=== PATIENT | female | born 1935 | race Caucasian/White ===

== ENCOUNTER 2018-04-04 07:19 | Emergency (ER) | payer MEDICARE, BC ==
[2018-04-04 07:42] VITALS: BP 199/84
[2018-04-04] MEDS: HYDROmorphone 0.5 MG/0.5 ML Syringe SUBCUT ONE (07:47)
--- NOTE | 2018-04-04 07:48 | EDM.PDOC ---
<Maribell Atkinson - Last Filed: 04/04/18 07:43> ED HPI GENERAL MEDICAL PROBLEM - General Chief Complaint: Upper Extremity Injury/Pain Stated Complaint: RT SHOULDER PAIN Time Seen by Provider: 04/04/18 07:30 Source of Information: Reports: Patient History Limitations: Reports: No Limitations - History of Present Illness INITIAL COMMENTS - FREE TEXT/NARRATIVE: C/o pain severe pain to right shoulder. Has seeing physical therapy. Pain worse through night. New bruising to top of shoulder. Notes similar when INR elevated. Has tried tylenol and tramadol without any improvement in pain. - Related Data Allergies Allergy/AdvReac Type Severity Reaction Status Date / Time levofloxacin [From Levaquin] Allergy Muscle Verified 03/20/15 08:40 Aches Home Meds: Home Meds Atenolol [Tenormin] 50 mg PO BID 03/01/14 [History] Brimonidine Tartrate [Alphagan P] 1 drop EYEBOTH TID 03/01/14 [History] Calcium Carbonate/Vitamin D3 [Caltrate-600 with Vit D Tab] 1 each PO DAILY 03/01 [History] Dicyclomine [Bentyl] 20 mg PO QID PRN 03/01/14 [History] Digoxin [Digox] 125 mcg PO DAILY 03/01/14 [History] Losartan/Hydrochlorothiazide [Losartan-HCTZ 100-25 MG] 0.5 tab PO BID 03/01/14 [ History] Multivit-Min/FA/Lycopene/Lut [Centrum Silver] 1 each PO DAILY 03/01/14 [History] Omeprazole 20 mg PO DAILY 03/01/14 [History] Warfarin Sodium 1 tab PO DAILY 03/01/14 [History] Zolpidem [Ambien] 5 gram PO BEDTIME PRN 03/01/14 [History] LORazepam 1 mg PO ASDIRECTED 03/22/15 [History] Cimetidine [Tagamet] 200 mg PO DAILY PRN 03/23/15 [History] Ergocalciferol (Vitamin D2) [Vitamin D2] 50,000 unit PO .BIWEEKLY 03/23/15 [ History] Latanoprost 1 drop EYEBOTH DAILY 03/23/15 [History] Review of Systems - Review of Systems Review Of Systems: ROS reveals no pertinent complaints other than HPI. ED EXAM, GENERAL - Physical Exam Exam: See Below Exam Limited By: No Limitations General Appearance: Moderate Distress (tearful, pacing frequent attempts to reposition arm) Eye Exam: Bilateral Eye: EOMI Ears: Normal External Exam, Hearing Loss Nose: Normal Inspection Throat/Mouth: Normal Inspection Head: Atraumatic, Normocephalic Neck: Full Range of Motion Respiratory/Chest: Lungs Clear Cardiovascular: Regular Rate, Rhythm Extremities: Limited Range of Motion (right shoulder increased pain with minimal movment). No: Normal Range of Motion Neurological: Alert, Oriented, Normal Cognition Psychiatric: Tearful Skin Exam: Warm, Dry, Intact, Ecchymosis (older yellow bruising with 2x4cm purple bruised area near bra strap outline.) Course - Vital Signs Last Recorded V/S: Last Vital Signs Temp 36.4 C 04/04/18 07:23 Pulse 88 04/04/18 07:23 Resp 18 04/04/18 07:23 BP 199/84 H 04/04/18 07:23 Pulse Ox 93 L 04/04/18 07:23 - Orders/Labs/Meds Labs: Laboratory Tests 04/04/18 Range/Units 07:40 PT 37.9 H (9.0-12.0) SEC INR 3.9 H (0.9-1.2) Meds: Medications Discontinued Medications Generic Name Dose Route Start Last Admin Trade Name Freq PRN Reason Stop Dose Admin Hydromorphone HCl 1 mg 04/04/18 07:41 04/04/18 07:47 Dilaudid SUBCUT 04/04/18 07:42 1 mg ONETIME ONE Administration Departure - Departure Disposition: Home, Self-Care 01 Clinical Impression: Supratherapeutic international normalized ratio (INR) Osteoarthritis of right shoulder Qualifiers: Osteoarthritis type: unspecified Qualified Code(s): M19.011 - Primary osteoarthritis, right shoulder Contusion of shoulder, right Qualifiers: Encounter type: initial encounter Qualified Code(s): S40.011A - Contusion of right shoulder, initial encounter - Discharge Information Instructions: Shoulder Pain, Warfarin Coagulopathy Forms: ED Department Discharge Additional Instructions: Do not take Warfarin (Coumadin) today, and take 5mg tomorrow. Call your doctor April 06 to arrange a repeat blood test and follow up appointment. Rx: [place] (Hydrocodone APAP) 5mg/325mg *Do not drive while under the influence of this medication. <Aldo Gomes - Last Filed: 04/04/18 09:19> ED HPI GENERAL MEDICAL PROBLEM - History of Present Illness INITIAL COMMENTS - FREE TEXT/NARRATIVE: Assumed care of pt at shift change with no changes to CC/HPI as documented by Maribell FULLER for this encounter. 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 Course - Radiology Interpretation Free Text/Narrative:: xray Rt shoulder: no acute fracture, see Rad. report. Departure - Departure Time of Disposition: 08:57 Condition: Fair
== END 2018-04-04 09:35 | disposition home or self-care (01) ==
LOC: DL.ED 07:19
DX: S40.011A Contusion of right shoulder, initial encounter (principal); M19.011 Primary osteoarthritis, right shoulder; R79.1 Abnormal coagulation profile; Z88.1 Allergy status to other antibiotic agents; Z79.899 Other long term (current) drug therapy; Z79.01 Long term (current) use of anticoagulants; X58.XXXA Exposure to other specified factors, initial encounter
CPT/HCPCS: 36415; 73030-RT; 85610; 96372; 99283; 99284; J1170

== ENCOUNTER 2018-04-12 07:43 | Emergency (ER) | payer MEDICARE, BC ==
[2018-04-12] MEDS ORDERED: Sodium Chloride 0.9% 10 ML Syringe FLUSH PRN (07:49)
--- NOTE | 2018-04-12 07:49 | EDM.PDOC ---
"ED HPI GENERAL MEDICAL PROBLEM - General Chief Complaint: Upper Extremity Injury/Pain Stated Complaint: BY AMBULANCE Time Seen by Provider: 04/12/18 07:49 Source of Information: Reports: Patient, EMS, Old Records, RN, RN Notes Reviewed History Limitations: Reports: No Limitations - History of Present Illness INITIAL COMMENTS - FREE TEXT/NARRATIVE: Arrives from home by ambulance with c/o severe right shoulder pain with recurrent spontaneous bruising in the Rt shoulder region without injury. Pt is on coumadin with an INR of 3.9 on 04/04/18 and repeat INR of 3.0 today. Denies fall, or any injury. 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(s) Right Shoulder Pain Score (Numeric/FACES): 10 - Related Data Allergies Allergy/AdvReac Type Severity Reaction Status Date / Time levofloxacin [From Levaquin] Allergy Muscle Verified 03/20/15 08:40 Aches Home Meds: Home Meds Atenolol [Tenormin] 50 mg PO BID 03/01/14 [History] Brimonidine Tartrate [Alphagan P] 1 drop EYEBOTH TID 03/01/14 [History] Calcium Carbonate/Vitamin D3 [Caltrate-600 with Vit D Tab] 1 each PO DAILY 03/01 [History] Dicyclomine [Bentyl] 20 mg PO QID PRN 03/01/14 [History] Digoxin [Digox] 125 mcg PO DAILY 03/01/14 [History] Losartan/Hydrochlorothiazide [Losartan-HCTZ 100-25 MG] 0.5 tab PO BID 03/01/14 [ History] Multivit-Min/FA/Lycopene/Lut [Centrum Silver] 1 each PO DAILY 03/01/14 [History] Omeprazole 20 mg PO DAILY 03/01/14 [History] Warfarin Sodium 1 tab PO ASDIRECTED 03/01/14 [History] Zolpidem [Ambien] 5 gram PO BEDTIME PRN 03/01/14 [History] LORazepam 1 mg PO ASDIRECTED 03/22/15 [History] Cimetidine [Tagamet] 200 mg PO DAILY PRN 03/23/15 [History] Ergocalciferol (Vitamin D2) [Vitamin D2] 50,000 unit PO .BIWEEKLY 03/23/15 [ History] Latanoprost 1 drop EYEBOTH DAILY 03/23/15 [History] Hydrocodone/Acetaminophen [Hydrocodon-Acetaminophen 5-325] 1 tab PO ASDIRECTED PRN 04/12/18 [History] Past Medical History HEENT History: Reports: Glaucoma, Hard of Hearing, Other (See Below) Other HEENT History: wears glasses and uses hearing aides. 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: Reports: Musculoskeletal History: Reports: Arthritis Neurological History: Reports: None Psychiatric History: Reports: Depression Endocrine/Metabolic History: Reports: None Hematologic History: Reports: None Immunologic History: Reports: None Oncologic (Cancer) History: Reports: None Dermatologic History: Reports: None - Past Surgical History Female Surgical History: Reports: Hysterectomy Musculoskeletal Surgical History: Reports: None Social & Family History - Family History Family Medical History: Noncontributory - Living Situation & Occupation Living situation: Reports: , with Spouse Occupation: Retired ED ROS GENERAL - Review of Systems Review Of Systems: ROS reveals no pertinent complaints other than HPI. ED EXAM, GENERAL - Physical Exam Exam: See Below Exam Limited By: No Limitations General Appearance: Alert, Anxious, Moderate Distress (due to pain) Eye Exam: Bilateral Eye: Normal Inspection Nose: Normal Inspection, Normal Mucosa, No Blood Throat/Mouth: Normal Inspection Head: Atraumatic, Normocephalic Neck: Normal Inspection, Non-Tender, Full Range of Motion Respiratory/Chest: No Respiratory Distress, Lungs Clear, Normal Breath Sounds, No Accessory Muscle Use, Chest Non-Tender Cardiovascular: Irregularly Irregular GI/Abdominal: Normal Bowel Sounds, Soft, Non-Tender, No Distention. No: Guarding, Rigid, Rebound (Female) Exam: Deferred Rectal (Female) Exam: Deferred Back Exam: Normal Inspection. No: CVA Tenderness (L), CVA Tenderness (R) Extremities: Normal Capillary Refill, Arm Pain (Rt), Limited Range of Motion ( Rt shoulder), Other (Rt shoulder with resolving ecchymotic bruise at superior shoulder, newer subacute large bruises to anterior shoulder, upper anterior and medial Rt arm, skin is intact). No: Joint Swelling, Increased Warmth, Redness Neurological: Alert, Oriented, No Motor/Sensory Deficits Psychiatric: Anxious Skin Exam: Warm, Dry Course - Vital Signs Last Recorded V/S: Last Vital Signs Temp 36.8 C 04/12/18 10:07 Pulse 93 04/12/18 10:07 Resp 18 04/12/18 10:07 BP 189/81 H 04/12/18 10:07 Pulse Ox 99 04/12/18 07:46 - Orders/Labs/Meds Orders: Active Orders 24 hr Category Date Time Status Peripheral IV Care [RC] . DIRECTED Care 04/12/18 07:50 Active UA W/MICROSCOPIC [URIN] Stat Lab 04/12/18 10:15 Ordered HYDROmorphone [Dilaudid] Med 04/12/18 10:42 Once 0.5 mg IVPUSH ONETIME ONE Sodium Chloride 0.9% [Saline Flush] Med 04/12/18 07:49 Active 10 ml FLUSH ASDIRECTED PRN Peripheral IV Insertion Adult [OM.PC] Stat Oth 04/12/18 07:50 Ordered Medication Orders Hydromorphone HCl (Dilaudid) 0.5 mg IVPUSH ONETIME ONE Stop: 04/12/18 10:43 Sodium Chloride (Saline Flush) 10 ml FLUSH ASDIRECTED PRN PRN Reason: Keep Vein Open Last Admin: 04/12/18 08:00 Dose: 10 ml Labs: Laboratory Tests 04/12/18 04/12/18 04/12/18 Range/Units 07:58 07:58 07:58 WBC 10.6 H (5.0-10.0) 10^3/uL RBC 4.38 (4.2-5.4) 10^6/uL Hgb 13.8 (12.0-16.0) g/dL Hct 40.5 (37.0-47.0) % MCV 92.5 (80-100) fL MCH 31.5 (27.0-34.0) pg MCHC 34.1 (33.0-35.0) g/dL Plt Count 237 (150-450) 10^3/uL Neut % (Auto) 74.7 (42.2-75.2) % Lymph % (Auto) 16.3 L (20.5-50.1) % Gove % (Auto) 7.6 (2-8) % Eos % (Auto) 0.8 L (1.0-3.0) % Baso % (Auto) 0.6 (0.0-1.0) % PT 29.3 H (9.0-12.0) SEC INR 3.0 H (0.9-1.2) APTT 36.4 H (22.0-34.0) SEC Sodium 135 (135-145) mmol/L Potassium 3.2 L (3.6-5.0) mmol/L Chloride 96 L (101-111) mmol/L Carbon Dioxide 23.0 (21.0-31.0) mmol/L Anion Gap 19.2 BUN 20 H (7-18) mg/dL Creatinine 0.8 (0.6-1.3) mg/dL Est Cr Clr Drug Dosing 49.63 mL/min Estimated GFR (MDRD) > 60 BUN/Creatinine Ratio 25.00 Glucose 136 H (74-105) mg/dL Uric Acid (2.6-7.2) mg/dL Calcium 10.4 H (8.4-10.2) mg/dl Total Bilirubin 2.8 H (0.2-1.0) mg/dL AST 49 H (10-42) IU/L ALT 26 (10-60) IU/L Alkaline Phosphatase 222 H (42-121) IU/L Lactate Dehydrogenase (91-180) IU/L C-Reactive Protein (0.0-1.3) mg/dL Total Protein 8.0 (6.7-8.2) g/dl Albumin 4.8 (3.2-5.5) g/dl Globulin 3.2 Albumin/Globulin Ratio 1.50 Urine Color (YELLOW) Urine Appearance (CLEAR) Urine pH (5.0-9.0) Ur Specific [place] (1.005-1.030) Urine Protein (NEGATIVE) Urine Glucose (UA) (NEGATIVE) Urine Ketones (NEGATIVE) Urine Occult Blood (NEGATIVE) Urine Nitrite (NEGATIVE) Urine Bilirubin (NEGATIVE) Urine Urobilinogen (0.2-1.0) mg/dL Ur Leukocyte Esterase (NEGATIVE) Urine RBC /HPF Urine WBC (0-5/HPF) /HPF Ur Epithelial Cells /HPF Urine Bacteria (0-FEW/HPF) /HPF Hyaline Casts /LPF Digoxin (0-2.5) ng/ml 04/12/18 04/12/18 04/12/18 Range/Units 07:58 07:58 07:58 WBC (5.0-10.0) 10^3/uL RBC (4.2-5.4) 10^6/uL Hgb (12.0-16.0) g/dL Hct (37.0-47.0) % MCV (80-100) fL MCH (27.0-34.0) pg MCHC (33.0-35.0) g/dL Plt Count (150-450) 10^3/uL Neut % (Auto) (42.2-75.2) % Lymph % (Auto) (20.5-50.1) % [place]ove % (Auto) (2-8) % Eos % (Auto) (1.0-3.0) % Baso % (Auto) (0.0-1.0) % PT (9.0-12.0) SEC INR (0.9-1.2) APTT (22.0-34.0) SEC Sodium (135-145) mmol/L Potassium (3.6-5.0) mmol/L Chloride (101-111) mmol/L Carbon Dioxide (21.0-31.0) mmol/L Anion Gap BUN (7-18) mg/dL Creatinine (0.6-1.3) mg/dL Est Cr Clr Drug Dosing mL/min Estimated GFR (MDRD) BUN/Creatinine Ratio Glucose (74-105) mg/dL Uric Acid (2.6-7.2) mg/dL Calcium (8.4-10.2) mg/dl Total Bilirubin (0.2-1.0) mg/dL AST (10-42) IU/L ALT (10-60) IU/L Alkaline Phosphatase (42-121) IU/L Lactate Dehydrogenase 299 H (91-180) IU/L C-Reactive Protein 1.3 (0.0-1.3) mg/dL Total Protein (6.7-8.2) g/dl Albumin (3.2-5.5) g/dl Globulin Albumin/Globulin Ratio Urine Color (YELLOW) Urine Appearance (CLEAR) Urine pH (5.0-9.0) Ur Specific [place] (1.005-1.030) Urine Protein (NEGATIVE) Urine Glucose (UA) (NEGATIVE) Urine Ketones (NEGATIVE) Urine Occult Blood (NEGATIVE) Urine Nitrite (NEGATIVE) Urine Bilirubin (NEGATIVE) Urine Urobilinogen (0.2-1.0) mg/dL Ur Leukocyte Esterase (NEGATIVE) Urine RBC /HPF Urine WBC (0-5/HPF) /HPF Ur Epithelial Cells /HPF Urine Bacteria (0-FEW/HPF) /HPF Hyaline Casts /LPF Digoxin 1.3 (0-2.5) ng/ml 04/12/18 04/12/18 Range/Units 07:58 10:15 WBC (5.0-10.0) 10^3/uL RBC (4.2-5.4) 10^6/uL Hgb (12.0-16.0) g/dL Hct (37.0-47.0) % MCV (80-100) fL MCH (27.0-34.0) pg MCHC (33.0-35.0) g/dL Plt Count (150-450) 10^3/uL Neut % (Auto) (42.2-75.2) % Lymph % (Auto) (20.5-50.1) % [place] % (Auto) (2-8) % Eos % (Auto) (1.0-3.0) % Baso % (Auto) (0.0-1.0) % PT (9.0-12.0) SEC INR (0.9-1.2) APTT (22.0-34.0) SEC Sodium (135-145) mmol/L Potassium (3.6-5.0) mmol/L Chloride (101-111) mmol/L Carbon Dioxide (21.0-31.0) mmol/L Anion Gap BUN (7-18) mg/dL Creatinine (0.6-1.3) mg/dL Est Cr Clr Drug Dosing mL/min Estimated GFR (MDRD) BUN/Creatinine Ratio Glucose (74-105) mg/dL Uric Acid 4.7 (2.6-7.2) mg/dL Calcium (8.4-10.2) mg/dl Total Bilirubin (0.2-1.0) mg/dL AST (10-42) IU/L ALT (10-60) IU/L Alkaline Phosphatase (42-121) IU/L Lactate Dehydrogenase (91-180) IU/L C-Reactive Protein (0.0-1.3) mg/dL Total Protein (6.7-8.2) g/dl Albumin (3.2-5.5) g/dl Globulin Albumin/Globulin Ratio Urine Color [place] (YELLOW) Urine Appearance Clear (CLEAR) Urine pH 5.5 (5.0-9.0) Ur Specific [place] 1.020 (1.005-1.030) Urine Protein 30 H (NEGATIVE) Urine Glucose (UA) Negative (NEGATIVE) Urine Ketones 15 H (NEGATIVE) Urine Occult Blood Negative (NEGATIVE) Urine Nitrite Negative (NEGATIVE) Urine Bilirubin Negative (NEGATIVE) Urine Urobilinogen 0.2 (0.2-1.0) mg/dL Ur Leukocyte Esterase Negative (NEGATIVE) Urine RBC 0-5 /HPF Urine WBC 0-5 (0-5/HPF) /HPF Ur Epithelial Cells Moderate H /HPF Urine Bacteria Few (0-FEW/HPF) /HPF Hyaline Casts Rare H /LPF Digoxin (0-2.5) ng/ml Meds: Medications Generic Name Dose Route Start Last Admin Trade Name Freq PRN Reason Stop Dose Admin Hydromorphone HCl 0.5 mg 04/12/18 10:42 Dilaudid IVPUSH 04/12/18 10:43 ONETIME ONE Sodium Chloride 10 ml 04/12/18 07:49 04/12/18 08:00 Saline Flush FLUSH 10 ml ASDIRECTED PRN Administration Keep Vein Open Discontinued Medications Generic Name Dose Route Start Last Admin Trade Name Freq PRN Reason Stop Dose Admin Hydromorphone HCl 1 mg 04/12/18 07:50 04/12/18 08:08 Dilaudid IVPUSH 04/12/18 07:51 1 mg ONETIME ONE Administration Ondansetron HCl 4 mg 04/12/18 07:51 04/12/18 08:04 Zofran IV 04/12/18 07:52 4 mg ONETIME ONE Administration - Radiology Interpretation Free Text/Narrative:: [facility] [place] [facility] Final Radiology Report Call: [phone] assistance Online chat: [email or web address] Name: LILLIAN BOX Age: 82Years F Date: 04/12/2018 SSN: -- : [id number] Study: CT EXTREMITY UPPER WO Requesting Physician: DUY WEATHERS Images: [id number] Addl Studies: Provided Clinical History: Contrast: Without Contrast Medium: Contrast Amount: Contrast Method: Page 1 of 2 EXAM: CT Right Upper Extremity Without Intravenous Contrast, Shoulder EXAM DATE/TIME: 04/12/2018 8:34 AM CLINICAL HISTORY: The patient is 82 years old and is female; Pain; Shoulder; Right; Patient HX: Brusing and pain in the right shoulder. TECHNIQUE: Axial computed tomography images of the right shoulder without intravenous contrast. All CT scans at this facility use one or more dose reduction techniques, viz.: automated exposure control; ma/kV adjustment per patient size (including targeted exams where dose is matched to indication; i.e. head); or iterative reconstruction technique. Coronal and sagittal reformatted images were created and reviewed. COMPARISON: CR - Shoulder Comp Rt 2018-04-04 07:41 FINDINGS: Bones/joints: There is moderate osteophyte formation with mild subchondral degenerative cystic change at the acromioclavicular joint. Chondrocalcinosis is present here. A small broad-based osteophyte projects from the undersurface of the acromion. There is moderate osteophyte formation about the glenohumeral joint. Some degenerative cystic change is present in the superior glenoid. Chondrocalcinosis involves the glenohumeral joint. There are moderate productive and degenerative cystic changes along the greater tuberosity. The bones appear osteopenic. Multiple osteochondral bodies are present, including some measuring up to 1.3 cm along the superior margin of the glenohumeral joint and some measuring up to 1.2 cm in the region of the subscapularis recess. There is a moderate glenohumeral joint effusion. Degenerative changes involve the spine. No acute fracture. No dislocation. LILLIAN BOX | Final Radiology Report CONFIDENTIALITY STATEMENT This report is intended only for use by the referring physician, and only in accordance with law. If you received this in error, call [phone]. Page 2 of 2 Soft tissues: Unremarkable. Lung apices: The visualized right lung is essentially clear, aside from some apical scarring. IMPRESSION: 1. Degenerative changes as described. 2. Chondrocalcinosis, raising the possibility of calcium pyrophosphate dihydrate crystal deposition disease. 3. Apparent osteopenia. Thank you for allowing us to participate in the care of your patient. Dictated and Authenticated by: Vadim Harvey MD 04/12/2018 9:55 AM Central Time ([place] & [place]) CT Results Date: 04/12/18 Departure - Departure Time of Disposition: 10:43 Disposition: Home, Self-Care 01 Condition: Fair Clinical Impression: Effusion of glenohumeral joint of right upper extremity, Chondrocalcinosis of right shoulder region, Spontaneous bruising Osteoarthritis of right shoulder Qualifiers: Osteoarthritis type: unspecified Qualified Code(s): M19.011 - Primary osteoarthritis, right shoulder - Discharge Information Referrals: PCP,None [Primary Care Provider] - Forms: ED Department Discharge Additional Instructions: Rx: Oxycodone APAP 10mg/325mg *Do not drive while under the influence of this medication. Follow up in clinic with your doctor at the first available appointment for recheck, and referral to an orthopedic surgeon. - My Orders Last 24 Hours: My Active Orders 04/12/18 07:49 Sodium Chloride 0.9% [Saline Flush] 10 ml FLUSH ASDIRECTED PRN 04/12/18 07:50 Peripheral IV Care [RC] . DIRECTED Peripheral IV Insertion Adult [OM.PC] Stat 04/12/18 10:15 UA W/MICROSCOPIC [URIN] Stat 04/12/18 10:42 HYDROmorphone [Dilaudid] 0.5 mg IVPUSH ONETIME ONE - Assessment/Plan Last 24 Hours: My Active Orders 04/12/18 07:49 Sodium Chloride 0.9% [Saline Flush] 10 ml FLUSH ASDIRECTED PRN 04/12/18 07:50 Peripheral IV Care [RC] . DIRECTED Peripheral IV Insertion Adult [OM.PC] Stat 04/12/18 10:15 UA W/MICROSCOPIC [URIN] Stat 04/12/18 10:42 HYDROmorphone [Dilaudid] 0.5 mg IVPUSH ONETIME ONE"
[2018-04-12] MEDS ORDERED: HYDROmorphone 0.5 MG/0.5 ML Syringe IVPUSH ONE ×2 (07:50→10:42)
[2018-04-12] MEDS ORDERED: Ondansetron 4 MG/2 ML SDV IV ONE (07:51)
[2018-04-12 08:30] LABS: CHLORIDE,CL 96 mmol/L (101-111); SODIUM,NA 135 mmol/L (135-145)
[2018-04-12 10:08] VITALS: BP 189/81
== END 2018-04-12 11:11 | disposition home or self-care (01) ==
LOC: DL.ED 07:43
DX: M25.411 Effusion, right shoulder (principal); M19.011 Primary osteoarthritis, right shoulder; M11.211 Other chondrocalcinosis, right shoulder; Z79.899 Other long term (current) drug therapy; Z88.1 Allergy status to other antibiotic agents
CPT/HCPCS: 36415; 73200; 80053; 80162; 81001; 83615; 84550; 85025; 85610; 85730; 86140; 96374; 96375; 96376; 99284; J1170; J2405; J7050; 99283

== ENCOUNTER 2020-10-21 09:24 | Emergency (ER) | payer MEDICARE, BC ==
[2020-10-21 09:43] VITALS: BP 152/71; PULSE 83
--- NOTE | 2020-10-21 09:48 | EDM.PDOC ---
ED HPI GENERAL MEDICAL PROBLEM - General Stated Complaint: AMBULANCE Time Seen by Provider: 10/21/20 09:34 Source of Information: Reports: Patient, EMS History Limitations: Reports: Altered Mental Status (some confusion as to place) - History of Present Illness INITIAL COMMENTS - FREE TEXT/NARRATIVE: HPI: This 85 yo female patient was brought to the ED by [facility] due to falling out of bed. The patient reports she is currently having a headache, but denies any additional symptoms at this time. The patient was brought to the ED with a C- collar in place. Primary Survey Airway: open and patient Breathing: regular without additional effort Circulation: no major bleeding noted Deformity: no deformity noted Expose: as appropriate GCS: 14 Secondary Survey HEENT Head: normocephalic, atraumatic Eyes: PERRLA Ears: no obvious trauma, canals open Nose: no deformity, no bleeding, mucosa moist Mouth: no noted trauma Throat: no abnormalities noted Neck: Subtle, normal range of motion no cervical tenderness Chest: lung sounds were clear and equal bilaterally, Heart was RRR, no murmurs, rubs or gallop Abdomen: normoactive bowel sounds, no organomegally, no tenderness on palpation Pelvis: stable Extremities: some bruising to her left upper extremity Provider Trauma Notes Arrival Time: 927 GCS on Arrival: 14 C-collar present on arrival: yes GCS at 1 hour: Off spine board: NA Time primary survey: 933 Time secondary survey: 935 Time C-collar cleared: By: Time removed: GCS on discharge: - Related Data Allergies Allergy/AdvReac Type Severity Reaction Status Date / Time levofloxacin [From Levaquin] Allergy Muscle Verified 04/22/18 03:18 Aches Home Meds: Home Meds Brimonidine Tartrate [Alphagan P] 1 drop EYEBOTH TID 03/01/14 [History] Calcium Carbonate/Vitamin D3 [Caltrate-600 with Vit D Tab] 1 each PO DAILY 03/01/14 [History] Dicyclomine [Bentyl] 20 mg PO QID PRN 03/01/14 [History] Digoxin [Digox] 125 mcg PO DAILY 03/01/14 [History] Losartan/Hydrochlorothiazide [Losartan-HCTZ 100-25 MG] 0.5 tab PO BID 03/01/14 [ History] Multivit-Min/FA/Lycopene/Lut [Centrum Silver] 1 each PO DAILY 03/01/14 [History] Omeprazole 20 mg PO DAILY 03/01/14 [History] Warfarin Sodium 1 tab PO ASDIRECTED 03/01/14 [History] Zolpidem [Ambien] 5 gram PO BEDTIME PRN 03/01/14 [History] atenoloL [Tenormin] 50 mg PO BID 03/01/14 [History] LORazepam 1 mg PO ASDIRECTED 03/22/15 [History] Cimetidine [Tagamet] 200 mg PO DAILY PRN 03/23/15 [History] Ergocalciferol (Vitamin D2) [Vitamin D2] 50,000 unit PO .BIWEEKLY 03/23/15 [History] Latanoprost 1 drop EYEBOTH DAILY 03/23/15 [History] Hydrocodone/Acetaminophen [Hydrocodone-Acetamin 5-325 mg] 1 tab PO ASDIRECTED PRN 04/12/18 [History] Past Medical History HEENT History: Reports: Glaucoma, Hard of Hearing, Other (See Below) Other HEENT History: wears glasses and uses hearing aides. Cardiovascular History: Reports: Afib Respiratory History: Reports: Sleep Apnea Gastrointestinal History: Reports: GERD Genitourinary History: Reports: None [employer] History: Reports: Musculoskeletal History: Reports: Arthritis Neurological History: Reports: None Psychiatric History: Reports: Depression Endocrine/Metabolic History: Reports: None Hematologic History: Reports: None Immunologic History: Reports: None Oncologic (Cancer) History: Reports: None Dermatologic History: Reports: None - Past Surgical History Female Surgical History: Reports: Hysterectomy Musculoskeletal Surgical History: Reports: None Social & Family History - Family History Family Medical History: No Pertinent Family History - Caffeine Use Caffeine Use: Reports: Coffee - Living Situation & Occupation Living situation: Reports: , with Spouse Occupation: Retired Review of Systems - Review of Systems Review Of Systems: Comprehensive ROS is negative, except as noted in HPI. ED EXAM, GENERAL - Physical Exam Exam: See Below Exam Limited By: Altered Mental Status (confusion) General Appearance: Alert, WD/WN, Mild Distress Eye Exam: Bilateral Eye: EOMI, Normal Inspection, PERRL Ears: Normal External Exam, Normal Canal, Hearing Grossly Normal, Normal TMs Nose: Normal Inspection, Normal Mucosa, No Blood Throat/Mouth: Normal Inspection, Normal Lips, Normal Teeth, Normal Gums, Normal Oropharynx, Normal Voice, No Airway Compromise Head: Atraumatic, Normocephalic Neck: Normal Inspection, Supple, Non-Tender, Full Range of Motion Respiratory/Chest: No Respiratory Distress, Lungs Clear, Normal Breath Sounds, No Accessory Muscle Use, Chest Non-Tender Cardiovascular: Irregularly Irregular GI/Abdominal: Normal Bowel Sounds, Soft, Non-Tender, No Organomegaly, No Distention, No Abnormal Bruit, No Mass, Pelvis Stable Rectal (Female) Exam: Deferred Back Exam: Normal Inspection, Full Range of Motion, NT Extremities: Other (generalized weakness with cofusion following directions) Neurological: Alert, Confused (as to location) Psychiatric: Normal Affect, Normal Mood Skin Exam: Warm, Dry, Intact, Normal Color, No Rash Lymphatic: No Adenopathy Course - Vital Signs Last Recorded V/S: Last Vital Signs Temp 36.4 C 10/21/20 09:42 Pulse 83 10/21/20 09:42 Resp 11 L 10/21/20 09:42 BP 152/71 H 10/21/20 09:42 Pulse Ox 92 L 10/21/20 09:42 - Orders/Labs/Meds Orders: Active Orders 24 hr Category Date Time Status EKG Documentation Completion [RC] STAT Care 10/21/20 09:27 Ordered Labs: Laboratory Tests 10/21/20 10/21/20 10/21/20 Range/Units 09:39 09:39 09:39 WBC 5.0 (5.0-10.0) 10^3/uL RBC 4.60 (4.2-5.4) 10^6/uL Hgb 13.7 (12.0-16.0) g/dL Hct 40.1 (37.0-47.0) % MCV 87.2 D (80-100) fL MCH 29.8 (27.0-34.0) pg MCHC 34.2 (33.0-35.0) g/dL Plt Count 192 D (150-450) 10^3/uL Neut % (Auto) 47.7 (42.2-75.2) % Lymph % (Auto) 36.3 (20.5-50.1) % [place] % (Auto) 11.4 H (2-8) % Eos % (Auto) 3.4 H (1.0-3.0) % Baso % (Auto) 1.2 H (0.0-1.0) % PT 22.3 H D (9.0-12.0) SEC INR 2.4 H (0.9-1.2) Sodium 142 (136-145) mmol/L Potassium 3.5 (3.5-5.1) mmol/L Chloride 103 (98-107) mmol/L Carbon Dioxide 28 (21-32) mmol/L Anion Gap 14.5 H (7-13) mEq/L BUN 23 H (7-18) mg/dL Creatinine 0.97 (0.55-1.02) mg/dL Est Cr Clr Drug Dosing 37.28 mL/min Estimated GFR (MDRD) 55 BUN/Creatinine Ratio 23.7 (No establ ref range) Glucose 114 H (74-99) mg/dL Calcium 9.9 (8.5-10.1) mg/dL Total Bilirubin 1.9 H (0.2-1.0) mg/dL AST 28 (15-37) U/L ALT 28 (14-59) U/L Alkaline Phosphatase 307 H (46-116) U/L Troponin I 0.017 (0.000-0.056) ng/mL Total Protein 7.3 (6.4-8.2) g/dL Albumin 4.0 (3.4-5.0) g/dL Globulin 3.3 Albumin/Globulin Ratio 1.21 Urine Color (YELLOW) Urine Appearance (CLEAR) Urine pH (5.0-9.0) Ur Specific [place] (1.005-1.030) Urine Protein (NEGATIVE) Urine Glucose (UA) (NEGATIVE) Urine Ketones (NEGATIVE) Urine Occult Blood (NEGATIVE) Urine Nitrite (NEGATIVE) Urine Bilirubin (NEGATIVE) Urine Urobilinogen (0.2-1.0) mg/dL Ur Leukocyte Esterase (NEGATIVE) Urine RBC /HPF Urine WBC (0-5/HPF) /HPF Ur Epithelial Cells (NOT SEEN) /HPF Urine Bacteria (0-FEW/HPF) /HPF SARS-CoV-2 RNA (DEMETRA) (NEGATIVE) 10/21/20 10/21/20 Range/Units 11:25 11:49 WBC (5.0-10.0) 10^3/uL RBC (4.2-5.4) 10^6/uL Hgb (12.0-16.0) g/dL Hct (37.0-47.0) % MCV (80-100) fL MCH (27.0-34.0) pg MCHC (33.0-35.0) g/dL Plt Count (150-450) 10^3/uL Neut % (Auto) (42.2-75.2) % Lymph % (Auto) (20.5-50.1) % [place] % (Auto) (2-8) % Eos % (Auto) (1.0-3.0) % Baso % (Auto) (0.0-1.0) % PT (9.0-12.0) SEC INR (0.9-1.2) Sodium (136-145) mmol/L Potassium (3.5-5.1) mmol/L Chloride (98-107) mmol/L Carbon Dioxide (21-32) mmol/L Anion Gap (7-13) mEq/L BUN (7-18) mg/dL Creatinine (0.55-1.02) mg/dL Est Cr Clr Drug Dosing mL/min Estimated GFR (MDRD) BUN/Creatinine Ratio (No establ ref range) Glucose (74-99) mg/dL Calcium (8.5-10.1) mg/dL Total Bilirubin (0.2-1.0) mg/dL AST (15-37) U/L ALT (14-59) U/L Alkaline Phosphatase (46-116) U/L Troponin I (0.000-0.056) ng/mL Total Protein (6.4-8.2) g/dL Albumin (3.4-5.0) g/dL Globulin Albumin/Globulin Ratio Urine Color Dark yellow (YELLOW) Urine Appearance Slightly cloudy (CLEAR) Urine pH 5.5 (5.0-9.0) Ur Specific [place] >= 1.030 (1.005-1.030) Urine Protein Trace H (NEGATIVE) Urine Glucose (UA) Negative (NEGATIVE) Urine Ketones Negative (NEGATIVE) Urine Occult Blood Negative (NEGATIVE) Urine Nitrite Negative (NEGATIVE) Urine Bilirubin Negative (NEGATIVE) Urine Urobilinogen 0.2 (0.2-1.0) mg/dL Ur Leukocyte Esterase Negative (NEGATIVE) Urine RBC 0-5 /HPF Urine WBC 0-5 (0-5/HPF) /HPF Ur Epithelial Cells Rare (NOT SEEN) /HPF Urine Bacteria Not seen (0-FEW/HPF) /HPF SARS-CoV-2 RNA (DEMETRA) Negative (NEGATIVE) Meds: Medications Discontinued Medications Generic Name Dose Route Start Last Admin Trade Name Mini PRN Reason Stop Dose Admin Acetaminophen 650 mg 10/21/20 13:52 Tylenol PO 10/21/20 13:53 NOW ONE - Re-Assessments/Exams Free Text/Narrative Re-Assessment/Exam: 10/21/20 11:45 Discussed the examination, CT results and lab results with the patient's (Kendrick). Her reports she normally walks around the house and takes care of herself. The patient has not had any nausea, vomiting or diarrhea. The patient has been more tired over the past couple of days. The patient normally takes her Ambien at about 0030 and sleeps until 0830. The reports he was in the bed with the patient this morning when he was woken up to a loud "thump". When the got over the patient, the patient reports she was feeling dizzy after the fall. The patient stated she "finally did it" referring to falling out of bed. The reports she is a little slow walking about the house due to generalized body aches that he relates to age and arthritis. 10/21/20 14:06 On reassessment of the patient, the patient had left sided facial droop and left upper extremity weakness. The patient continued to have confusion as well as reporting a right sided headache. Departure - Departure Time of Disposition: 14:12 Disposition: DC/Tfer to Acute Hospital 02 Condition: Fair Clinical Impression: Fall from ground level CVA (cerebral vascular accident) Qualifiers: CVA mechanism: unspecified Qualified Code(s): I63.9 - Cerebral infarction, unspecified - Discharge Information *PRESCRIPTION DRUG MONITORING PROGRAM REVIEWED*: Not Applicable *COPY OF PRESCRIPTION DRUG MONITORING REPORT IN PATIENT DESMOND: Not Applicable Forms: Interfacility Transfer EMTALA Care Plan Goals: Discussed the patient's history, examination, lab and CT [facility] the [facility] for continued evaluation and further management at [facility] in [place]. The patient will be transported by [facility]. Sepsis Event Note (ED) - Focused Exam Vital Signs: Vital Signs Temp Pulse Resp BP Pulse Ox 10/21/20 09:42 36.4 C 83 11 L 152/71 H 92 L - My Orders Last 24 Hours: My Active Orders 10/21/20 09:27 EKG Documentation Completion [RC] STAT - Assessment/Plan Last 24 Hours: My Active Orders 10/21/20 09:27 EKG Documentation Completion [RC] STAT
--- NOTE | 2020-10-21 10:02 | CT ---
PROCEDURE INFORMATION: Exam: CT Head Without Contrast Exam date and time: 10/21/2020 9:29 AM Age: 85 years old Clinical indication: Injury or trauma; Fall; Abrasion; Head, generalized; Injury date: 10/21/2020; Additional info: Fell from bed TECHNIQUE: Imaging protocol: Computed tomography of the head without contrast. Radiation optimization: All CT scans at this facility use at least one of these dose optimization techniques: automated exposure control; mA and/or kV adjustment per patient size (includes targeted exams where dose is matched to clinical indication); or iterative reconstruction. COMPARISON: No relevant prior studies available. FINDINGS: Brain: No acute intracerebral abnormality or injury. No acute infarct or intracerebral bleed. Mild age-appropriate cerebral atrophy with patchy periventricular leukomalacia in both cerebral hemispheres, consistent most likely with chronic underlying small vessel / microvascular ischemic disease. [facility] Stroke Program Early CT Score (ASPECTS score) = 10. Cerebral ventricles: No ventriculomegaly. Bones/joints: Unremarkable. No acute fracture. Paranasal sinuses: Visualized sinuses are unremarkable. No fluid levels. Mastoid air cells: Visualized mastoid air cells are well aerated. Soft tissues: Unremarkable. IMPRESSION: 1. No acute intracerebral abnormality or injury. No acute infarct or intracerebral bleed. 2. Mild age-appropriate cerebral atrophy with patchy periventricular leukomalacia in both cerebral hemispheres, consistent most likely with chronic underlying small vessel / microvascular ischemic disease. 3. [facility] Stroke Program Early CT Score (ASPECTS score) = 10.
--- NOTE | 2020-10-21 10:06 | CT ---
PROCEDURE INFORMATION: Exam: CT Cervical Spine Without Contrast Exam date and time: 10/21/2020 9:29 AM Age: 85 years old Clinical indication: Injury or trauma; Fall; Injury date: 10/21/2020; Additional info: Fell from bed TECHNIQUE: Imaging protocol: Computed tomography images of the cervical spine without contrast. Radiation optimization: All CT scans at this facility use at least one of these dose optimization techniques: automated exposure control; mA and/or kV adjustment per patient size (includes targeted exams where dose is matched to clinical indication); or iterative reconstruction. COMPARISON: No relevant prior studies available. FINDINGS: Bones/joints: No acute fractures seen in the cervical spine. The cervical spine alignment shows mild, less than 10% anterolisthesis of C3 upon C4 and C4 upon C5. Chronic degenerative vertebral body endplate osteophytosis with diminished disc height is seen at levels C5-C7. 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 Lungs: Lung apices are normal. Pleural space: Pleural thickening versus small pleural effusions are seen in the posterior lung apices bilaterally. Soft tissues: Unremarkable prevertebral and posterior paraspinal soft tissues. IMPRESSION: 1. No acute fractures seen in the cervical spine. 2. The cervical spine alignment shows mild, less than 10% anterolisthesis of C3 upon C4 and C4 upon C5. 3. Chronic degenerative vertebral body endplate osteophytosis with diminished disc height is seen at levels C5-C7. 4. 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 5. Pleural thickening versus small pleural effusions are seen in the posterior lung apices bilaterally.
[2020-10-21 10:46] LABS: ANION GAP 14.5 mEq/L (7-13)
[2020-10-21] MEDS: Acetaminophen 325 MG Tab PO ONE (14:05)
== END 2020-10-21 14:50 ==
LOC: DL.ED 09:24
DX: I63.9 Cerebral infarction, unspecified (principal); I48.91 Unspecified atrial fibrillation; K21.9 Gastro-esophageal reflux disease without esophagitis; F32.9 Major depressive disorder, single episode, unspecified; Z90.710 Acquired absence of both cervix and uterus; Z20.828 Contact with and (suspected) exposure to other viral communicable diseases; Z88.1 Allergy status to other antibiotic agents; Z79.899 Other long term (current) drug therapy; W06.XXXA Fall from bed, initial encounter
CPT/HCPCS: 36415; 70450; 72125; 80053; 81001; 84484; 85025; 85610; 93005; 99285; U0002; 93010; 99284

== ENCOUNTER 2020-12-28 01:17 | Emergency (ER) | payer MEDICARE, BC ==
[2020-12-28] MEDS ORDERED: Acetaminophen 325 MG Tab PO ONE (01:18)
--- NOTE | 2020-12-28 01:36 | EDM.PDOC ---
ED [facility] GENERAL MEDICAL PROBLEM - General Stated Complaint: AMBULANCE Time Seen by Provider: 12/28/20 01:18 Source of Information: Reports: Patient, EMS, RN, RN Notes Reviewed History Limitations: Reports: No Limitations - History of Present Illness INITIAL COMMENTS - FREE TEXT/NARRATIVE: Patient presents to the ED via EMS with complaints of laceration to left forehead following a fall at home. The patient reports she was up using the bathroom and tripped over a rug when attempting to return to her bed. The patient stuck her forehead against a dresser; she denies LOC. She does attest to daily blood thinner use as she is on Coumadin for AFib. She denies vision changes, palpitations, nausea, vomiting, or changes in motor/sensory function to her extremities. She does attest to a history of stroke in October 2020. Trauma Notes: As above in HPI Arrival Time: 011 C-Collar Status: Not placed by EMS; Placed upon arrival to facility at 0125 Spinal Board/Immobilization Status: Not placed by EMS GCS on Arrival: 15 Primary Trauma Survey 0125 hrs Airway: Patent nasal and oral airways. Breathing: Spontaneous, rapid respirations with clear bilateral breath sounds. Circulation: Heart rate and rhythm irregularly irregular which the patient states is normal for her. Intact distal pulses to all four extremities. No cyanosis. Deformity/Disability: Laceration to left forehead, extending into left eyebrow. Patient verbalizes pain to left shoulder. No active bleeding. No long bone deformities. Abdomen benign to exam. Exposure: Skin warm and dry. Scattered bruising in various stages of healing to bilateral upper extremities. - Related Data Allergies Allergy/AdvReac Type Severity Reaction Status Date / Time levofloxacin [From Levaquin] Allergy Muscle Verified 04/22/18 03:18 Aches Home Meds: Home Meds Brimonidine Tartrate [Alphagan P] 1 drop EYEBOTH TID 03/01/14 [History] Calcium Carbonate/Vitamin D3 [Caltrate-600 with Vit D Tab] 1 each PO DAILY 03/01/14 [History] Dicyclomine [Bentyl] 20 mg PO QID PRN 03/01/14 [History] Digoxin [Digox] 125 mcg PO DAILY 03/01/14 [History] Losartan/Hydrochlorothiazide [Losartan-HCTZ 100-25 MG] 0.5 tab PO BID 03/01/14 [History] Multivit-Min/FA/Lycopene/Lut [Centrum Silver] 1 each PO DAILY 03/01/14 [History] Omeprazole 20 mg PO DAILY 03/01/14 [History] Warfarin Sodium 1 tab PO ASDIRECTED 03/01/14 [History] Zolpidem [Ambien] 5 gram PO BEDTIME PRN 03/01/14 [History] atenoloL [Tenormin] 50 mg PO BID 03/01/14 [History] LORazepam 1 mg PO ASDIRECTED 03/22/15 [History] Cimetidine [Tagamet] 200 mg PO DAILY PRN 03/23/15 [History] Ergocalciferol (Vitamin D2) [Vitamin D2] 50,000 unit PO .BIWEEKLY 03/23/15 [History] Latanoprost 1 drop EYEBOTH DAILY 03/23/15 [History] Hydrocodone/Acetaminophen [Hydrocodone-Acetamin 5-325 mg] 1 tab PO ASDIRECTED PRN 04/12/18 [History] Past Medical History HEENT History: Reports: Glaucoma, Hard of Hearing, Other (See Below) Other HEENT History: wears glasses and uses hearing aides. 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: Musculoskeletal History: Reports: Arthritis Neurological History: Reports: None Psychiatric History: Reports: Depression Endocrine/Metabolic History: Reports: None Hematologic History: Reports: None Immunologic History: Reports: None Oncologic (Cancer) History: Reports: None Dermatologic History: Reports: None - Past Surgical History Female Surgical History: Reports: Hysterectomy Musculoskeletal Surgical History: Reports: None Social & Family History - Family History Family Medical History: No Pertinent Family History - Caffeine Use Caffeine Use: Reports: Coffee - Living Situation & Occupation Living situation: Reports: , with Spouse Occupation: Retired Review of Systems - Review of Systems Review Of Systems: Comprehensive ROS is negative, except as noted in HPI. ED EXAM, GENERAL - Physical Exam Exam: See Below Free Text/Narrative:: Secondary Trauma Survey as follows (9522) Exam Limited By: No Limitations General Appearance: Alert, No Apparent Distress Eye Exam: Bilateral Eye: EOMI, PERRL (3mm), Other (4cm laceration extending into left upper eyelid, eyebrow, and left forehead) Ears: Normal External Exam, Normal Canal, Hearing Grossly Normal, Normal TMs Ear Exam: Bilateral Ear: Auricle Normal, Canal Normal, TM normal Nose: Normal Inspection, Normal Mucosa, No Blood Throat/Mouth: Normal Inspection, Normal Voice, No Airway Compromise Head: Normocephalic, Facial Tenderness (4cm laceration to left eyebrow/forehead) Neck: Normal Inspection, Supple, Non-Tender, Full Range of Motion, Other (C- collar placed at 0125 until c-spine cleared via examination; C-spine cleared at 0221 via imaging and physical examination; C-collar removed at 0222 by LELIA Harmon). No: Tender Lateral, Tender Midline Respiratory/Chest: No Respiratory Distress, Lungs Clear, Normal Breath Sounds, No Accessory Muscle Use, Chest Non-Tender Cardiovascular: Normal Peripheral Pulses, Regular Rate, Rhythm, No Edema, No Gallop, No JVD, No Murmur, No Rub Peripheral Pulses: 2+: Radial (L), Radial (R) GI/Abdominal: Normal Bowel Sounds, Soft, Non-Tender, No Distention, No Abnormal Bruit, No Mass, Pelvis Stable (Female) Exam: Deferred Rectal (Female) Exam: Deferred Back Exam: Normal Inspection, Full Range of Motion. No: CVA Tenderness (L), CVA Tenderness (R), Paraspinal Tenderness, Vertebral Tenderness Extremities: Normal Inspection, Normal Range of Motion, No Pedal Edema, Normal Capillary Refill, Arm Pain (To left shoulder; no deformity noted), Limited Range of Motion (To left shoulder ). No: Joint Swelling, Increased Warmth, Mottled, Pallor, Redness Neurological: Alert, Oriented, CN II-XII Intact, Normal Cognition, No Motor/Sensory Deficits Psychiatric: Normal Affect, Normal Mood Skin Exam: Warm, Dry, Normal Color, Wound/Incision (4cm clean, linear laceration to left eyelid/eyebrow/forehead). No: Ecchymosis, Erythema, Jaundice, Mottled, Pallor, Petechiae ED TRAUMA PROCEDURES - Laceration/Wound Repair Left Anterior Lateral Brow Lac/Wound Length In cm: 4 Appearance: Subcutaneous Distal NVT: Neuro & Vascular Intact, No Tendon Injury Anesthetic Type: Local Local Anesthesia - Lidocaine (Xylocaine): 1% Plain Local Anesthetic Volume: Other (7cc) Skin Prep: Chlorhexidine (Hibiciens), Sterile Drape Exploration/Debridement/Repair: Wound Explored, In a Bloodless Field, Explored to Base, No Foreign Material Found, Wound Margins Revised Closed With: Sutures Suture Size: 4-0 Suture Type: Prolene, Interrupted, Simple Drain Placement: No Sterile Dressing Applied: Nurse Tetanus Status Addressed: Yes Complications: No Course - Orders/Labs/Meds Labs: Laboratory Tests 12/28/20 12/28/20 12/28/20 Range/Units 01:27 01:27 01:27 WBC 7.6 (5.0-10.0) 10^3/uL RBC 3.78 L (4.2-5.4) 10^6/uL Hgb 11.4 L D (12.0-16.0) g/dL Hct 34.6 L (37.0-47.0) % MCV 91.5 D (80-100) fL MCH 30.2 (27.0-34.0) pg MCHC 32.9 L (33.0-35.0) g/dL Plt Count 223 (150-450) 10^3/uL Neut % (Auto) 64.7 (42.2-75.2) % Lymph % (Auto) 21.4 (20.5-50.1) % [place] % (Auto) 10.6 H (2-8) % Eos % (Auto) 3.0 (1.0-3.0) % Baso % (Auto) 0.3 (0.0-1.0) % PT 39.2 H D (9.0-12.0) SEC INR 4.2 H (0.9-1.2) APTT 34.4 H (22.0-34.0) SEC Sodium 140 (136-145) mmol/L Potassium 3.6 (3.5-5.1) mmol/L Chloride 100 (98-107) mmol/L Carbon Dioxide 28 (21-32) mmol/L Anion Gap 15.6 H (7-13) mEq/L BUN 24 H (7-18) mg/dL Creatinine 1.05 H (0.55-1.02) mg/dL Est Cr Clr Drug Dosing TNP Estimated GFR (MDRD) 50 BUN/Creatinine Ratio 22.9 (No establ ref range) Glucose 144 H (74-99) mg/dL Calcium 9.6 (8.5-10.1) mg/dL Total Bilirubin 3.1 H (0.2-1.0) mg/dL AST 32 (15-37) U/L ALT 31 (14-59) U/L Alkaline Phosphatase 290 H (46-116) U/L Troponin I < 0.017 (0.000-0.056) ng/mL C-Reactive Protein 1.3 H (0.0-0.9) mg/dL B-Natriuretic Peptide 176 H (0-100) pg/ml Total Protein 7.4 (6.4-8.2) g/dL Albumin 3.6 (3.4-5.0) g/dL Globulin 3.8 Albumin/Globulin Ratio 0.9 Digoxin (0.9-2.0) ng/mL Ethyl Alcohol < 3 (0) mg/dL SARS-CoV-2 RNA (DEMETRA) (NEGATIVE) 12/28/20 12/28/20 Range/Units 01:27 02:26 WBC (5.0-10.0) 10^3/uL RBC (4.2-5.4) 10^6/uL Hgb (12.0-16.0) g/dL Hct (37.0-47.0) % MCV (80-100) fL MCH (27.0-34.0) pg MCHC (33.0-35.0) g/dL Plt Count (150-450) 10^3/uL Neut % (Auto) (42.2-75.2) % Lymph % (Auto) (20.5-50.1) % [place] % (Auto) (2-8) % Eos % (Auto) (1.0-3.0) % Baso % (Auto) (0.0-1.0) % PT (9.0-12.0) SEC INR (0.9-1.2) APTT (22.0-34.0) SEC Sodium (136-145) mmol/L Potassium (3.5-5.1) mmol/L Chloride (98-107) mmol/L Carbon Dioxide (21-32) mmol/L Anion Gap (7-13) mEq/L BUN (7-18) mg/dL Creatinine (0.55-1.02) mg/dL Est Cr Clr Drug Dosing Estimated GFR (MDRD) BUN/Creatinine Ratio (No establ ref range) Glucose (74-99) mg/dL Calcium (8.5-10.1) mg/dL Total Bilirubin (0.2-1.0) mg/dL AST (15-37) U/L ALT (14-59) U/L Alkaline Phosphatase (46-116) U/L Troponin I (0.000-0.056) ng/mL C-Reactive Protein (0.0-0.9) mg/dL B-Natriuretic Peptide (0-100) pg/ml Total Protein (6.4-8.2) g/dL Albumin (3.4-5.0) g/dL Globulin Albumin/Globulin Ratio Digoxin 1.4 (0.9-2.0) ng/mL Ethyl Alcohol (0) mg/dL SARS-CoV-2 RNA (DEMETRA) Negative (NEGATIVE) Meds: Medications Discontinued Medications Generic Name Dose Route Start Last Admin Trade Name Freq PRN Reason Stop Dose Admin Acetaminophen Confirm 12/28/20 03:09 Tylenol Administered 12/28/20 03:10 Dose 650 mg .ROUTE .STK-MED ONE Lidocaine HCl 30 ml 12/28/20 02:00 Xylocaine-Mpf 1% INJECT 12/28/20 02:01 ONETIME ONE - Radiology Interpretation Free Text/Narrative:: [facility] Final Radiology Report with Addendum Call: [phone] assistance Online chat: [email or web address] Name: LILLIAN BOX Age: 85Years F Date: 12/28/2020 SSN: -- : 1935 Study: CT HEAD WO CONT Requesting Physician: Shawna Corbin Images: 145 Addl Studies: Provided Clinical History: Fall at home; Struck head on dresser; On Coumadin Contrast: Without Contrast Medium: Contrast Amount: Contrast Method: Page 1 of 2 Addendum created by Harris Gonzalez MD on 12/28/2020 2:21 AM Central Time ([place] & [place]): Findings were discussed with Shawna Corbin at 12/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 Initial Report created on 12/28/2020 2:14 AM Central Time ([place] & [place]): PROCEDURE INFORMATION: Exam: CT Head Without Contrast Exam date and time: 12/28/2020 1:47 AM Age: 85 years old Clinical indication: Injury or trauma; Fall; Laceration; Consciousness not specified; Without residual foreign body; Forehead; Injury date: 12/28/2020; Additional info: Fall at home; Struck head on dresser; On coumadin TECHNIQUE: Imaging protocol: Computed tomography of the head without contrast. Radiation optimization: All CT scans at this facility use at least one of these dose optimization techniques: automated exposure control; mA and/or kV adjustment per patient size (includes targeted exams where dose is matched to clinical indication); or iterative reconstruc tion. COMPARISON: CT Head wo Cont 10/21/2020 9:29 AM FINDINGS: Brain: There is cortical and white matter low density with volume loss in the anterior aspect of right temporal lobe. There is a broad ovoid area of tissue loss in the deep white matter of the right hemisphere involving the basal ganglia measuring up to 3.5 cm. There is ex vacuo dilatation of the adjacent ventricular system. There is a broad area of loss of gomez-white differentiation in the right posterior temporal parietal region. There appears to be at least some evidence of volume loss in the region. There is a broad area of tissue loss and right occipital lobe. There is moderate diffuse nonspecific white matter lucency. Differential diagnosis includes demyelination, gliosis, small vessel disease. Small vessel disease is favored. There is no evidence of acute hemorrhage. Cerebral ventricles: There is moderate generalized cerebral volume loss. Bones/joints: No acute bony findings are identified. The temporal bones are symmetric and unremarkable. There is no evidence of acute fracture. Paranasal sinuses: There is non-specific mucoperiosteal thickening in the sphenoid sinus complex. The visualized paranasal sinuses are otherwise clear. Mastoid air cells: Mastoid air cells well aerated. Soft tissues: There is no soft tissue abnormality seen. IMPRESSION: 1. Since the prior examination dated 10/21/2020 patient is developed multiple areas of infarct in the right hemisphere. The right anterior temporal lobe infarct, the right deep white matter/basal ganglial infarct, and the right occipital lobe infarcts are convincingly chronic. 2. The right posterior temporoparietal infarct is likely late subacute to early chronic. 3. Extensive white matter lucency suggests chronic small vessel disease. 4. There is no sign of acute trauma on the current examination, there is no sign of acute hemorrhage. 5. Consider MRI. Thank you for allowing us to participate in the care of your patient. Dictated and Authenticated by: Harris Gonzalez MD 12/28/2020 2:14 AM Central Time ([place] & [place]) [facility] [place] [facility] Final Radiology Report Call: [phone] assistance Online chat: [email or web address] Name: LILLIAN BOX Age: 85Years F Date: 12/28/2020 SSN: -- : 1935 Study: CT CERVICAL SPINE WO CONT Requesting Physician: Shawna Corbin Images: [id number] Addl Studies: Provided Clinical History: Trauma; Fall at home from ground level Contrast: Without Contrast Medium: Contrast Amount: Contrast Method: Page 1 of 2 PROCEDURE INFORMATION: Exam: CT Cervical Spine Without Contrast Exam date and time: 12/28/2020 1:47 AM Age: 85 years old Clinical indication: Injury or trauma; Fall; Concussion/head injury; Injury date: 12/28/2020; Additional info: Trauma; Fall at home from ground level TECHNIQUE: Imaging protocol: Computed tomography images of the cervical spine without contrast. Radiation optimization: All CT scans at this facility use at least one of these dose optimization techniques: automated exposure control; mA and/or kV adjustment per patient size (includes targeted exams where dose is matched to clinical indication); or iterative reconstruction. COMPARISON: CT Cervical Spine wo Cont 10/21/2020 9:29 AM FINDINGS: Bones/joints: There is approximately 1 mm of anterior displacement of C4 upon C5. The alignment is otherwise anatomic.The facet joints are appropriately oriented. There is marked degenerative change of the facet joints. No posterior arch fracture seen. There is no evidence of acute fracture. Discs/Spinal canal/Neural foramina: No significant compressive lesion is seen. No spinal stenosis Lungs: The visualized portions of the lung apices are normal. Vasculature: There is moderate diffuse calcific atherosclerotic plaque. Soft tissues: There is no soft tissue abnormality seen. IMPRESSION: 1. Stable mild alignment alteration C4-C5 is presumed degenerative. 2. There is no evidence of acute fracture. 3. Other changes as described Thank you for allowing us to participate in the care of your patient. Dictated and Authenticated by: Harris Gonzalez MD 12/28/2020 2:20 AM Central Time ([place] & [place]) [facility] [place] [facility] Final Radiology Report Call: [phone] assistance Online chat: [email or web address] Name: LILLIAN BOX Age: 85Years F Date: 12/28/2020 SSN: -- : [id number] Study: CR SHOULDER COMP LT Requesting Physician: Shawna Corbin Images: 2 Addl Studies: Provided Clinical History: Fall at home from ground level; Pain in shoulder Contrast: Contrast Medium: Contrast Amount: Contrast Method: CONFIDENTIALITY STATEMENT This report is intended only for use by the referring physician, and only in accordance with law. If you received this in error, call [phone]. Page 1 of 1 PROCEDURE INFORMATION: Exam: XR Left Shoulder Exam date and time: 12/28/2020 1:37 AM Age: 85 years old Clinical indication: Pain; Shoulder; Left; Additional info: Fall at home from ground level; Pain in shoulder TECHNIQUE: Imaging protocol: XR Left shoulder. Views: 2 or more views. COMPARISON: No relevant prior studies available. FINDINGS: Bones/joints: There are moderate degenerative changes of the acromioclavicular joint. Mild hypertrophic change greater tuberosity. There is no evidence of acute fracture. There is no subluxation or dislocation. Soft tissues: There is no soft tissue abnormality seen. IMPRESSION: 1. Degenerative changes as described. 2. No acute findings. Thank you for allowing us to participate in the care of your patient. Dictated and Authenticated by: Harris Gonzalez MD 12/28/2020 2:29 AM Central Time ([place] & [place]) - Re-Assessments/Exams Free Text/Narrative Re-Assessment/Exam: 12/28/20 Ct head unremarkable for acute processes, including hemorrhage or stroke; however, multiple areas of subacute/early chronic of infarct since scan on October 21, 2020. Although patient is ruled out for trauma, will attempt to transfer to higher care for neuro monitoring given recent fall, elevated INR, mild anemia, and significant changes in CT from two months prior. GCS at one hour: 15 CBC remarkable for mild hypochromic anemia with Hgb 11.4; comparison from October 2020 revealed a Hgb of 13.[address] Myers at [facility] in [place]; as patient is ruled out as trauma and has no signs of acute infarct, he declines transfer of this patient as [facility] has no beds available. Case discussed with Dr. Foley at [facility] in [place]. He kindly agreed to accept patient for transfer for ongoing neuro monitoring. Plan of care discussed with patient and her who verbalize understanding and agreement with the plan of care. GCS at discharge: 15 Departure - Departure Time of Disposition: 03:17 Disposition: DC/Tfer to Acute Hospital 02 Condition: Good Clinical Impression: Fall from ground level, Elevated INR, Elevated brain natriuretic peptide (BNP) level Laceration of left eyebrow without complication Qualifiers: Encounter type: initial encounter Qualified Code(s): S01.112A - Laceration without foreign body of left eyelid and periocular area, initial encounter Head injury due to trauma Qualifiers: Encounter type: initial encounter Qualified Code(s): S09.90XA - Unspecified injury of head, initial encounter Anemia Qualifiers: Anemia type: unspecified type Qualified Code(s): D64.9 - Anemia, unspecified Left shoulder pain Qualifiers: Chronicity: acute Qualified Code(s): M25.512 - Pain in left shoulder - Discharge Information Forms: ED Department Discharge, Interfacility Transfer ADOLFO
[2020-12-28 01:54] LABS: ANION GAP 15.6 mEq/L (7-13); CHLORIDE,CL 100 mmol/L (98-107); SODIUM,NA 140 mmol/L (136-145)
[2020-12-28] MEDS ORDERED: Lidocaine 1% 30 ML SDV INJECT ONE (02:00)
--- NOTE | 2020-12-28 02:14 | CT ---
PROCEDURE INFORMATION: Exam: CT Head Without Contrast Exam date and time: 12/28/2020 1:47 AM Age: 85 years old Clinical indication: Injury or trauma; Fall; Laceration; Consciousness not specified; Without residual foreign body; Forehead; Injury date: 12/28/2020; Additional info: Fall at home; Struck head on dresser; On coumadin TECHNIQUE: Imaging protocol: Computed tomography of the head without contrast. Radiation optimization: All CT scans at this facility use at least one of these dose optimization techniques: automated exposure control; mA and/or kV adjustment per patient size (includes targeted exams where dose is matched to clinical indication); or iterative reconstruction. COMPARISON: CT Head wo Cont 10/21/2020 9:29 AM FINDINGS: Brain: There is cortical and white matter low density with volume loss in the anterior aspect of right temporal lobe. There is a broad ovoid area of tissue loss in the deep white matter of the right hemisphere involving the basal ganglia measuring up to 3.5 cm. There is ex vacuo dilatation of the adjacent ventricular system. There is a broad area of loss of gomez-white differentiation in the right posterior temporal parietal region. There appears to be at least some evidence of volume loss in the region. There is a broad area of tissue loss and right occipital lobe. There is moderate diffuse nonspecific white matter lucency. Differential diagnosis includes demyelination, gliosis, small vessel disease. Small vessel disease is favored. There is no evidence of acute hemorrhage. Cerebral ventricles: There is moderate generalized cerebral volume loss. Bones/joints: No acute bony findings are identified. The temporal bones are symmetric and unremarkable. There is no evidence of acute fracture. Paranasal sinuses: There is non-specific mucoperiosteal thickening in the sphenoid sinus complex. The visualized paranasal sinuses are otherwise clear. Mastoid air cells: Mastoid air cells well aerated. Soft tissues: There is no soft tissue abnormality seen. IMPRESSION: 1. Since the prior examination dated 10/21/2020 patient is developed multiple areas of infarct in the right hemisphere. The right anterior temporal lobe infarct, the right deep white matter/basal ganglial infarct, and the right occipital lobe infarcts are convincingly chronic. 2. The right posterior temporoparietal infarct is likely late subacute to early chronic. 3. Extensive white matter lucency suggests chronic small vessel disease. 4. There is no sign of acute trauma on the current examination, there is no sign of acute hemorrhage. 5. Consider MRI.
--- NOTE | 2020-12-28 02:21 | CT ---
PROCEDURE INFORMATION: Exam: CT Cervical Spine Without Contrast Exam date and time: 12/28/2020 1:47 AM Age: 85 years old Clinical indication: Injury or trauma; Fall; Concussion/head injury; Injury date: 12/28/2020; Additional info: Trauma; Fall at home from ground level TECHNIQUE: Imaging protocol: Computed tomography images of the cervical spine without contrast. Radiation optimization: All CT scans at this facility use at least one of these dose optimization techniques: automated exposure control; mA and/or kV adjustment per patient size (includes targeted exams where dose is matched to clinical indication); or iterative reconstruction. COMPARISON: CT Cervical Spine wo Cont 10/21/2020 9:29 AM FINDINGS: Bones/joints: There is approximately 1 mm of anterior displacement of C4 upon C5. The alignment is otherwise anatomic.The facet joints are appropriately oriented. There is marked degenerative change of the facet joints. No posterior arch fracture seen. There is no evidence of acute fracture. Discs/Spinal canal/Neural foramina: No significant compressive lesion is seen. No spinal stenosis Lungs: The visualized portions of the lung apices are normal. Vasculature: There is moderate diffuse calcific atherosclerotic plaque. Soft tissues: There is no soft tissue abnormality seen. IMPRESSION: 1. Stable mild alignment alteration C4-C5 is presumed degenerative. 2. There is no evidence of acute fracture. 3. Other changes as described
[2020-12-28 02:22] LABS: PTT,PARTIAL THROMBOPLSTIN TIME 34.4 SEC (22.0-34.0)
--- NOTE | 2020-12-28 02:29 | CR ---
PROCEDURE INFORMATION: Exam: XR Left Shoulder Exam date and time: 12/28/2020 1:37 AM Age: 85 years old Clinical indication: Pain; Shoulder; Left; Additional info: Fall at home from ground level; Pain in shoulder TECHNIQUE: Imaging protocol: XR Left shoulder. Views: 2 or more views. COMPARISON: No relevant prior studies available. FINDINGS: Bones/joints: There are moderate degenerative changes of the acromioclavicular joint. Mild hypertrophic change greater tuberosity. There is no evidence of acute fracture. There is no subluxation or dislocation. Soft tissues: There is no soft tissue abnormality seen. IMPRESSION: 1. Degenerative changes as described. 2. No acute findings.
[2020-12-28] MEDS ORDERED: Acetaminophen 325 MG Tab ONE (03:09)
== END 2020-12-28 03:17 ==
LOC: DL.ED 01:17
DX: S09.90XA Unspecified injury of head, initial encounter (principal); S01.112A Laceration without foreign body of left eyelid and periocular area, initial encounter; S01.81XA Laceration without foreign body of other part of head, initial encounter; M25.512 Pain in left shoulder; D64.9 Anemia, unspecified; R79.1 Abnormal coagulation profile; I48.91 Unspecified atrial fibrillation; K21.9 Gastro-esophageal reflux disease without esophagitis; Z88.1 Allergy status to other antibiotic agents; Z79.01 Long term (current) use of anticoagulants; Z79.899 Other long term (current) drug therapy; Z20.822 Contact with and (suspected) exposure to COVID-19; W01.0XXA Fall on same level from slipping, tripping and stumbling without subsequent striking against object, initial encounter; Y92.003 Bedroom of unspecified non-institutional (private) residence as the place of occurrence of the external cause
CPT/HCPCS: 12013; 36415; 70450; 72125; 73030; 80053; 80162; 80307; 83880; 84484; 85025; 85610; 85730; 86140; 99284; 99285; A9270; U0002